=== PATIENT | female | born 1955 | race Hispanic/Latino ===

== ENCOUNTER 2019-12-27 18:14 | Emergency (ER) | payer SELFPAY ==
[2019-12-27] MEDS ORDERED: PREDNISONE 20 MG TABLET ONE (18:46)
[2019-12-27] MEDS ORDERED: DIPHENHYDRAMINE HCL 25 MG CAPSULE ONE (18:46)
== END 2019-12-27 18:59 | disposition home or self-care (01) ==
LOC: EDH 18:14
DX: T78.49XA Other allergy, initial encounter (principal); X58.XXXA Exposure to other specified factors, initial encounter
CPT/HCPCS: 99283; Q0163